=== PATIENT | female | born 1970 | race Two or more races ===

== ENCOUNTER 2024-10-05 14:38 | Emergency (ER) | payer OTHER ==
[~2024-10-05] VITALS: Ht 160 cm; Wt 109.1 kg
[2024-10-05 16:33] VITALS: BP 120/68; PULSE 76; RESP 16; TEMP 97.7; O2SAT 97
[2024-10-05] MEDS ORDERED: PSEU120T18 PO (16:45)
[2024-10-05] MEDS ORDERED: ALBU1NEB5 IN (16:45)
[2024-10-05] MEDS ORDERED: PROM1SOL4 PO (16:45)
--- NOTE | 2024-10-05 16:46 | ED.PDOC ---
SOB-HPI HPI Comments 53 year old F seen at 2 weeks ago for URI symptoms completed Augmentin and benzonate today c/o fatigue, cough, and chest tightness and nasal congestion used rescue inhaler Denies fevers chills night sweats unintentional weight loss Denies persistent chest pain, shortness of breath, leg swelling Denies history of asthma nor any breathing conditions Denies history of pneumonia Denies recent international travel Chief Complaint: Flu like Time Seen by MD: 15:13 Reviewed notes: Nurses Notes, Medications, Allergies Information Source: Patient Mode of Arrival: Ambulatory Family History Family History: Reviewed,noncontributory to illness Social History Smoker: Non-Smoker Alcohol: Denies ETOH Use Drugs: Denies Drug Use All Other Systems: Reviewed and Negative (Per HPI) Physical Exam General Appearance: No Apparent Distress, Normal HEENT: Normal ENT Inspection, Pharynx Normal, TMs Normal Neck: Full Range of Motion, Non-Tender, Normal, Normal Inspection Respiratory: Chest Non-Tender, Lungs Clear, No Accessory Muscle Use, No Respiratory Distress, Normal Breath Sounds Cardiovascular: No Edema, No JVD, No Murmur, No Gallop, Normal Peripheral Pulses, Regular Rate/Rhythm Breast Exam: Deferred Gastrointestinal: No Organomegaly, Non Tender, No Pulsatile Mass, Normal Bowel Sounds, Soft Genitalia: Deferred Pelvic: Deferred Rectal: Deferred Extremities: No calf tenderness, Normal capillary refill, Normal inspection, Normal range of motion, Non-tender, No pedal edema Musculoskeletal : Apperance: Normal Neurologic: Alert, No Motor Deficits, Normal Affect, Normal Mood, No Sensory Deficits Cerebellar Function: Normal Reflexes: Normal Skin: Dry, Normal Color, Warm Lymphatic: No Adenopathy Was a procedure done? Was a procedure done?: No Differential Dx Differential Diagnosis: URI X-Ray, Labs, Meds, VS Vital Signs Date Time Temp Pulse Resp B/P (MAP) Pulse Ox O2 Delivery O2 Flow Rate FiO2 10/05/24 16:33 76 16 97 Room Air 10/05/24 16:33 97.7 76 16 120/68 (85) 97 97.7 10/05/24 15:13 97.7 76 16 120/68 (85) 97 X-Ray, Labs, Meds, VS Comment The patient is overall well-appearing nontoxic on exam. On physical exam, respirations even and unlabored, clear to auscultation bilaterally. Oxygen stable on room air. Did not have any focal lung findings and therefore chest x-ray was not indicated during this exam Low suspicion of strep pharyngitis given physical exam findings and patient's presenting symptoms No signs of meningismus on exam Overall, the patient is well hydrated and nontoxic. Plan for symptomatic control for fever and pain as needed. The patient was able to tolerate p.o. i ntake in the ED. at this time, patient is safe for discharge home. The exam findings and plan discussed. We will discharge home with PCP follow up and strict return precautions. Discussed that cough can linger up to 6 weeks after viral URI Supportive care and return precautions discussed Counseled viral infection and explained that antibiotics would not be helpful in resolving the illness sooner. Recommended vitamin C, rest, handwashing, and symptomatic care. Expect 2-week course with possibly of cough lingering up to 6 weeks. Nonpharmacological remedies for fluids has been recommended as well Time of 1ST Reevaluation: 16:00 Reevaluation 1ST: Improved Patient Education/Counseling: Diagnosis, Treatment Family Education/Counseling: Diagnosis, Treatment Departure 1 Departure Time of Disposition: 16:43 Impression: Primary Impression: URI (upper respiratory infection) Qualified Codes: J06.9 - Acute upper respiratory infection, unspecified Disposition: 01 HOME / SELF CARE / HOMELESS Condition: Stable e-Prescriptions Albuterol Sulfate (Albuterol Sulfate (5 mg/ml) 0.5%) 1 Neb Neb 1 NEB IN Q8HP PRN for 10 Days, #1 KIT 0 Refills Prov: MONICA READ NP 10/05/24 Pseudoephedrine-Guaifenesin (Mucinex D) 1 Tab Tab 1 TAB PO BID for 10 Days, #20 TAB 0 Refills Prov: MONICA READ NP 10/05/24 Promethazine-Dm (Promethazine Dm 6.25-15 mg/5Ml) 1 Mica Mica 5 ML PO TID for 10 Days, #150 ML 0 Refills Prov: MONICA READ NP 10/05/24 Discharged With: Self Critical Care Note Critical Care Time?: No Stability Stability form required: No Heart Score Heart Score: Heart Score Response (Comments) Value History N/A 0 EKG N/A 0 Age N/A 0 Risk Factors N/A 0 Troponin N/A 0 Total 0 MONICA READ NP Oct 05, 2024 16:46
== END 2024-10-05 16:52 | disposition home or self-care (01) ==
LOC: ER 14:43
DX: J06.9 Acute upper respiratory infection, unspecified (principal)